=== PATIENT | female | born 1960 | race Caucasian/White ===

== ENCOUNTER 2016-11-16 18:45 | Emergency (ER) | payer BC ==
[2016-11-16 18:55] VITALS: BP 135/61
[2016-11-16] MEDS ORDERED: Acetaminophen TAB* 325 MG PO ONE (19:20)
--- NOTE | 2016-11-16 19:27 | UC ---
Respiratory Complaint HPI - HPI Summary HPI Summary: 56 yo female with the onset of f/c, sever myalgias and cough runny nose which started about 12 hours ago no n/v/d no abd pain or UTI symptoms - History of Current Complaint Chief Complaint: UCRespiratory Stated Complaint: HIGH FEVER,EAR PAIN,ACHY Time Seen by Provider: 11/16/16 19:14 Hx Obtained From: Patient Onset/Duration: Sudden Onset, Lasting Hours Timing: Constant Severity Initially: Moderate Severity Currently: Moderate Pain Intensity: 7 Pain Scale Used: 0-10 Numeric Character: Cough: Productive Aggravating Factors: Nothing Alleviating Factors: Nothing Associated Signs And Symptoms: Positive: Fever, Chills, Nasal Congestion, Sinus Discomfort - Allergies/Home Medications Allergies/Adverse Reactions: Allergies Allergy/AdvReac Type Severity Reaction Status Date / Time Alcohol Allergy Severe "Cardiac Verified 11/16/16 18:56 Distress Syndrome" Aspirin [ASA] Allergy Severe anaphapaxis Verified 11/16/16 18:56 i Latex Allergy Severe anaphlaxsis Verified 11/16/16 18:56 Celecoxib [From Celebrex] AdvReac Severe aggitation Verified 11/16/16 18:56 Meperidine [From Demerol HCl] AdvReac Vomiting Verified 11/16/16 18:56 Nortriptyline AdvReac See Comment Verified 11/16/16 18:56 cyclines AdvReac Severe vomiting, Uncoded 08/25/15 13:44 diarrhea myacins AdvReac vomiting Uncoded 08/25/15 13:44 and diarrhea PMH/Surg Hx/FS Hx/Imm Hx Endocrine History Of: Reports: Diabetes, Thyroid Disease - hypo Cardiovascular History Of: Reports: Hypertension Denies: Cardiac Disorders Respiratory History Of: Reports: Asthma, Bronchitis, Pneumonia GI/ History Of: Denies: Ulcer - Surgical History Surgical History: Yes Surgery Procedure, Year, and Place: thumb surgery,nasal surgery, tubal ligation, . nerve blocks in spine 2007 - Social History Alcohol Use: None Alcohol Amount: never Substance Use Type: None Smoking Status (MU): Heavy Every Day Tobacco Smoker Type: Cigarettes Amount Used/How Often: 1PPD Length of Time of Smoking/Using Tobacco: 41 Years Have You Smoked in the Last Year: Yes Cessation Counseling: Patient Advised to Stop - Immunization History Most Recent Influenza Vaccination: no Review of Systems Constitutional: Fever, Chills, Fatigue Skin: Negative Eyes: Negative ENT: Ear Ache, Nasal Discharge Respiratory: Cough Cardiovascular: Negative Gastrointestinal: Negative Genitourinary: Negative Motor: Negative Neurovascular: Negative Musculoskeletal: Myalgia Neurological: Headache Psychological: Negative All Other Systems Reviewed And Are Negative: Yes Physical Exam Triage Information Reviewed: Yes Appearance: Well-Appearing, No Pain Distress, Well-Nourished Vital Signs: Initial Vital Signs Temp 99.7 F 11/16/16 18:49 Pulse 95 11/16/16 18:49 Resp 18 11/16/16 18:49 BP 135/61 11/16/16 18:49 Pulse Ox 97 11/16/16 18:49 Vital Signs Reviewed: Yes Eyes: Positive: Conjunctiva Clear ENT: Positive: Normal ENT inspection, Hearing grossly normal, Nasal congestion, Nasal drainage, TMs normal. Negative: Tonsillar swelling, Tonsillar exudate, Trismus, Muffled/hoarse voice Dental: Positive: Other: - edentulous Neck: Positive: Supple, Nontender, No Lymphadenopathy Respiratory: Positive: Lungs clear, Normal breath sounds, No respiratory distress. Negative: No accessory muscle use, Respiratory distress, Decreased breath sounds Cardiovascular: Positive: RRR, No Murmur. Negative: Brisk Capillary Refill, Bradycardia Abdomen Description: Positive: Nontender, No Organomegaly Musculoskeletal: Positive: Strength Intact, ROM Intact Neurological: Positive: Alert, Muscle Tone Normal Psychological Exam: Normal Skin Exam: Normal UC Diagnostic Evaluation - Laboratory O2 Sat by Pulse Oximetry: 97 - normal/not hypoxic Respiratory Course/Dx - Course Course Of Treatment: RAPID FLU (+) - Differential Dx/Diagnosis Provider Diagnoses: influenza. smoker Discharge - Discharge Plan Condition: Stable Disposition: HOME Prescriptions: Benzonatate CAP* [Tessalon CAP*] 100 - 200 mg PO TID PRN #28 cap PRN Reason: Cough Oseltamivir CAP* [Tamiflu CAP*] 75 mg PO BID #10 cap Patient Education Materials: Influenza (ED) Referrals: Prateek Nieves MD [Primary Care Provider] - 3 Days Additional Instructions: rest fluids tylenol recheck for new or worsening symptoms
== END 2016-11-16 19:53 | disposition home or self-care (01) ==
LOC: UCCORT 18:45
DX: M79.1 Myalgia (principal); J11.1 Influenza due to unidentified influenza virus with other respiratory manifestations; F17.210 Nicotine dependence, cigarettes, uncomplicated; Z88.6 Allergy status to analgesic agent; Z88.5 Allergy status to narcotic agent; Z88.1 Allergy status to other antibiotic agents; Z88.8 Allergy status to other drugs, medicaments and biological substances
CPT/HCPCS: 87502; 99212; A9270-GY; G0463

== ENCOUNTER 2018-01-03 16:51 | Emergency (ER) | payer BC ==
[2018-01-03 17:23] VITALS: BP 131/77
--- NOTE | 2018-01-03 17:45 | UC ---
Respiratory Complaint HPI - HPI Summary HPI Summary: Pt c/o cough, sob, chest congestion, nasal congestion, generalized malaise, chills X 1 week. - History of Current Complaint Chief Complaint: UCRespiratory Stated Complaint: COUGH,WHEEZING Time Seen by Provider: 01/03/18 17:27 Hx Obtained From: Patient ?: No Onset/Duration: Sudden Onset, Lasting Weeks, Still Present, Worse Since - onset Timing: Constant Severity Initially: Mild Severity Currently: Moderate Pain Intensity: 0 Character: Cough: Nonproductive Aggravating Factors: Exertion, Deep Breaths, Recumbent Position Alleviating Factors: Nothing Associated Signs And Symptoms: Positive: Chills, URI, Nasal Congestion - Risk Factors Pulmonary Embolism Risk Factors: Negative, Smoking Cardiac Risk Factors: Hypertension, Smoking, Diabetes, Elevated Lipids Pseudomonas Risk Factors: Negative Tuberculosis Risk Factors: Diabetes, Smoking, Incarceration - 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 - Allergies/Home Medications Allergies/Adverse Reactions: Allergies Allergy/AdvReac Type Severity Reaction Status Date / Time alcohol Allergy See Comment Verified 01/03/18 17:35 aspirin Allergy Anaphylatic Verified 01/03/18 17:40 Shock celecoxib [From Celebrex] Allergy Agitation Verified 01/03/18 17:40 latex Allergy Anaphylatic Verified 01/03/18 17:40 Shock meperidine Allergy Vomiting Verified 01/03/18 17:40 nortriptyline Allergy See Comment Verified 01/03/18 17:40 MS Nortriptyline AdvReac See Comment Verified 11/16/16 18:56 [Nortriptyline] cyclines AdvReac Severe vomiting, Uncoded 08/25/15 13:44 diarrhea myacins AdvReac vomiting Uncoded 08/25/15 13:44 and diarrhea Home Medications: Home Medications Biotin 10,000 mcg PO DAILY 01/03/18 [History Confirmed 01/03/18] Lisinopril TAB* [Prinivil TAB 5 MG*] 5 mg PO DAILY 01/03/18 [History Confirmed 01/03/18] Lysine HCl [l-Lysine] 500 mg PO DAILY 01/03/18 [History Confirmed 01/03/18] Potassium 99 mg PO DAILY 01/03/18 [History Confirmed 01/03/18] metFORMIN* [Glucophage 500 MG TAB *] 1,000 mg PO DAILY 01/03/18 [History Confirmed 01/03/18] PMH/Surg Hx/FS Hx/Imm Hx Previously Healthy: No Endocrine History: Diabetes Cardiovascular History: Cardiac Disease, Hypertension - Surgical History Surgical History: Yes Surgery Procedure, Year, and Place: thumb surgery,nasal surgery, tubal ligation, . nerve blocks in spine 2007 - Family History Known Family History: Positive: Cardiac Disease - Social History Occupation: Employed Full-time Lives: With Family Alcohol Use: None Alcohol Amount: never Substance Use Type: None Smoking Status (MU): Heavy Every Day Tobacco Smoker Type: Cigarettes Amount Used/How Often: 1PPD Length of Time of Smoking/Using Tobacco: 41 Years Have You Smoked in the Last Year: Yes - Immunization History Most Recent Influenza Vaccination: no Review of Systems Constitutional: Chills, Fatigue Skin: Negative Eyes: Negative ENT: Sinus Congestion Respiratory: Shortness Of Breath, Cough Cardiovascular: Negative Gastrointestinal: Negative Genitourinary: Negative Motor: Negative Neurovascular: Negative Musculoskeletal: Myalgia Neurological: Negative Psychological: Negative Is Patient Immunocompromised?: No All Other Systems Reviewed And Are Negative: Yes Physical Exam Triage Information Reviewed: Yes Appearance: Ill-Appearing Vital Signs: Initial Vital Signs Temp 98.1 F 01/03/18 17:18 Pulse 101 01/03/18 17:18 Resp 18 01/03/18 17:18 BP 131/77 01/03/18 17:18 Pulse Ox 99 01/03/18 17:18 Vital Signs Reviewed: Yes Eye Exam: Normal ENT Exam: Other ENT: Positive: Nasal congestion Dental Exam: Normal Neck exam: Normal Respiratory Exam: Other Respiratory: Positive: Decreased breath sounds - bases Cardiovascular Exam: Other Cardiovascular: Positive: Tachycardia Musculoskeletal Exam: Normal Neurological Exam: Normal Psychological Exam: Normal Skin Exam: Normal UC Diagnostic Evaluation - Laboratory O2 Sat by Pulse Oximetry: 99 Respiratory Course/Dx - Differential Dx/Diagnosis Differential Diagnosis/HQI/PQRI: Bronchitis, Influenza, Other - pneumonia Provider Diagnoses: pneumonia Discharge - Sign-Out/Discharge Documenting (check all that apply): Discharge/Admit/Transfer - Discharge Plan Condition: Stable Disposition: HOME Prescriptions: Albuterol 2.5MG/3ML (0.083%)* [Ventolin 2.5 MG/3 ML NEB.EMETERIO*] 2.5 mg INH Q6H PRN #1 box PRN Reason: Sob/Wheezing Benzonatate CAP* [Tessalon 100 MG CAP*] 100 mg PO Q8H PRN #30 cap PRN Reason: Cough predniSONE TAB* [Deltasone TAB*] 30 mg PO DAILY #12 tab Sulfamethox/Trimethoprim DS* [Bactrim DS 800/160 TAB*] 1 tab PO Q12H #20 tab Patient Education Materials: Pneumonia (ED) Referrals: Prateek Nieves MD [Primary Care Provider] - If Needed - Billing Disposition and Condition Condition: STABLE Disposition: HOME
== END 2018-01-03 17:54 | disposition home or self-care (01) ==
LOC: UCCORT 16:51
DX: J18.9 Pneumonia, unspecified organism (principal); F17.210 Nicotine dependence, cigarettes, uncomplicated; Z88.6 Allergy status to analgesic agent; Z88.3 Allergy status to other anti-infective agents; Z88.8 Allergy status to other drugs, medicaments and biological substances
CPT/HCPCS: 99212; G0463

== ENCOUNTER 2018-12-13 16:50 | Emergency (ER) | payer BC ==
[2018-12-13 17:41] VITALS: BP 144/85
[2018-12-13] MEDS ORDERED: Albuterol 2.5 MG/3 ML NEB.SOL* (0.083%) INH ONE (18:48)
--- NOTE | 2018-12-13 18:48 | UC ---
UC General HPI - HPI Summary HPI Summary: PER TRIAGE, Woke up with sore throat with fever, nasal congestion, chest congestion with cough. + HEADACHE, BODYACHES AND WHEEZING. + SINUS PAIN AND SINUS SWELLING. - History of Current Complaint Chief Complaint: UCGeneralIllness Stated Complaint: FEVER,COUGH,B/L EAR COMPLAINT Time Seen by Provider: 12/13/18 18:37 Hx Obtained From: Patient Onset/Duration: Sudden Onset Timing: Constant Pain Intensity: 8 Associated Signs & Symptoms: Negative: Chest Pain, Diarrhea, Dysuria, Vomiting - Allergy/Home Medications Allergies/Adverse Reactions: Allergies Allergy/AdvReac Type Severity Reaction Status Date / Time alcohol Allergy See Comment Verified 12/13/18 17:41 aspirin Allergy Anaphylatic Verified 12/13/18 17:41 Shock celecoxib [From Celebrex] Allergy Agitation Verified 12/13/18 17:41 latex Allergy Anaphylatic Verified 12/13/18 17:41 Shock meperidine Allergy Vomiting Verified 12/13/18 17:41 nortriptyline Allergy See Comment Verified 12/13/18 17:41 MS Nortriptyline AdvReac See Comment Verified 12/13/18 17:41 [Nortriptyline] cyclines AdvReac Severe vomiting, Uncoded 12/13/18 17:41 diarrhea myacins AdvReac vomiting Uncoded 12/13/18 17:41 and diarrhea PMH/Surg Hx/FS Hx/Imm Hx Endocrine History: Diabetes, Thyroid Disease, Dyslipidemia Cardiovascular History: Hypertension - Surgical History Surgical History: Yes Surgery Procedure, Year, and Place: thumb surgery,nasal surgery, tubal ligation, . nerve blocks in spine 2007 - Family History Known Family History: Positive: Cardiac Disease - Social History Lives: With Family Alcohol Use: None Alcohol Amount: never Substance Use Type: None Smoking Status (MU): Heavy Every Day Tobacco Smoker Type: Cigarettes Amount Used/How Often: 1PPD Length of Time of Smoking/Using Tobacco: 41 Years Have You Smoked in the Last Year: Yes - Immunization History Most Recent Influenza Vaccination: no Review of Systems All Other Systems Reviewed And Are Negative: Yes Constitutional: Positive: Fever ENT: Positive: Sore Throat, Nasal Discharge, Sinus Congestion, Sinus Pain/ Tenderness Respiratory: Positive: Cough Musculoskeletal: Positive: Myalgia Neurological: Positive: Headache Physical Exam Triage Information Reviewed: Yes Appearance: Ill-Appearing - BUT NON TOXIC Vital Signs: Initial Vital Signs Temp 98.3 F 12/13/18 17:35 Pulse 101 12/13/18 17:35 Resp 18 12/13/18 17:35 BP 144/85 12/13/18 17:35 Pulse Ox 99 12/13/18 17:35 Vital Signs Reviewed: Yes Eyes: Positive: Conjunctiva Clear ENT: Positive: Pharyngeal erythema, Nasal congestion, TMs normal, Sinus tenderness. Negative: Nasal drainage Neck: Positive: Supple, Nontender, No Lymphadenopathy Respiratory: Positive: No respiratory distress, Decreased breath sounds, Wheezing - SCATTERED Cardiovascular: Positive: RRR, No Murmur Abdomen Description: Positive: Nontender, No Organomegaly, Soft Bowel Sounds: Positive: Present Musculoskeletal: Positive: ROM Intact Neurological: Positive: Alert Psychological: Positive: Normal Response To Family, Age Appropriate Behavior Skin Exam: Normal Re-Evaluation - Re-Evaluation First Eval Re-Evaluation Time: 19:27 Change: Improved - better aeration and less wheezing. Course/Dx - Course Course Of Treatment: DIAGNOSTICS=RAPID FLU IS NEGATIVE. NEB TX HERE WAS HELPFUL, PT HAS ACCESS TO A NEB AT HOME THUS WILL WRIT FOR ALBUTEROL. PT STATES AMOXICILLIN WORKS WELL FOR HER AND THAT OTHER ANTIBIOTICS CAUSE HER SEVERE DIARRHEA THUS WILL USE THE AMOXICILLIN INSTEAD OF AUGMENTIN FOR HER SINUSES. - Differential Dx - Multi-Symptom Differential Diagnoses: Other - RAPID FLU=NEGATIVE. NO CONCERN FOR PNEUMONIA. - Diagnoses Provider Diagnosis: Sinusitis, Bronchospasm Discharge - Sign-Out/Discharge Documenting (check all that apply): Patient Departure All imaging exams completed and their final reports reviewed: No Studies - Discharge Plan Condition: Stable Disposition: HOME Prescriptions: Albuterol 2.5MG/3ML (0.083%)* [Ventolin 2.5 MG/3 ML NEB.EMETERIO*] 2.5 mg INH Q6H #1 box Amoxicillin PO (*) [Amoxicillin 875 MG (*)] 875 mg PO BID 10 Days #20 tab Patient Education Materials: Sinusitis (ED), Bronchospasm (ED) Forms: *Work Release Referrals: Prateek Nieves MD [Primary Care Provider] - 7 Days - Billing Disposition and Condition Condition: STABLE Disposition: Home
[2018-12-13 19:12] LABS: Influenza A Molecular NEGATIVE (Negative); Influenza B Molecular NEGATIVE (Negative)
== END 2018-12-13 19:44 | disposition home or self-care (01) ==
LOC: UCCORT 16:50
DX: J32.9 Chronic sinusitis, unspecified (principal); J98.01 Acute bronchospasm; E11.9 Type 2 diabetes mellitus without complications; I10 Essential (primary) hypertension; F17.210 Nicotine dependence, cigarettes, uncomplicated
CPT/HCPCS: 99212; G0463

== ENCOUNTER 2019-06-02 15:11 | Emergency (ER) | payer BC ==
--- OUTSIDE RECORDS SUMMARY | 2019-06-02 15:19 | XMS REPORT | Continuity of Care Document ---
:1960 External Reference #:[id number] Author Name Valentina Gamez, RUPINDER Address [facility] [place] [address] Care Team Providers Name Role Phone Patrick Quiles DR Care Team Information [facility] [phone] Supa Solares MD - Endocrinology, Care Team Information [facility] Metabolism Primo Lawler MD - Endocrinology, Care Team Information [facility] Ganga Rolle DR - Ophthalmology Care Team Information [facility] Problems Active Problems Provider Date Elevated blood-pressure reading without Prateek Nieves MD Onset: 2012 diagnosis of hypertension Irritable bowel syndrome Prateek Nieves MD Onset: 11/13/2010 Type 2 diabetes mellitus Prateek Nieves MD Onset: 05/13/2010 Vitamin D deficiency Prateek Nieves MD Onset: 03/29/2009 Shoulder joint pain Prateek Nieves MD Onset: 10/29/2006 Atopic dermatitis Prateek Nieves MD Onset: 08/23/2006 Hypothyroidism Prateek Nieves MD Onset: 06/29/2006 Pure hypercholesterolemia Prateek Nieves MD Onset: 06/29/2006 Benign neoplasm of colon Prateek Nieves MD Onset: 06/29/2006 Gastroesophageal reflux disease Prateek Nieves MD Onset: 06/29/2006 Anemia Prateek Nieves MD Onset: 06/29/2006 Tobacco user Prateek Nieves MD Onset: 06/29/2006 Postconcussion syndrome Prateek Nieves MD Onset: 10/19/2014 Rosacea Prateek Nieves MD Onset: 02/18/2016 Essential hypertension Prateek Nieves MD Onset: 02/18/2016 Increased frequency of urination Prateek Nieves MD Onset: 04/21/2017 Social History Type Date Description Comments Sex Unknown ETOH Use Denies alcohol use Tobacco Use Start: Unknown Patient is a current smoker, smokes every day 1 PPD Allergies, Adverse Reactions, Alerts Active Allergies Reaction Severity Comments Date Bentyl Screaming 07/12/2012 Clindamycin Vomiting/Diarrhea 11/13/2010 Cephalexin Vomiting/Diarrhea 11/13/2010 Aspirin 06/29/2006 Latex Diaphoretic/Rash 10/19/2014 Alcohol Respiratory Distress/Cardiac 10/19/2014 Arrest Per PT Nortriptyline Vomiting 10/19/2014 Lyrica Rash 10/19/2014 Cymbalta CP; Tremor; Marsh 10/19/2014 Relafen Itching 10/19/2014 Adhesives Rash 10/19/2014 Darvocet Vomiting 10/19/2014 Valproic Acid [employer] side effects 11/21/2014 Doxycycline Severe severe GI 06/28/2017 Medications Active Medications SIG Qnty Indications Ordering Provider Date Levothyroxine Sodium 1 by mouth 90tabs E03.9 Digiovanna, 03/27/2019 every day MD Prateek 100mcg Tablets Oxybutynin Chloride ER 1 by mouth 90tabs R35.0 Digiovanna, 09/22/2017 every day MD Prateek 15mg Tablets ER 24HR Test Strips For Use to test 100units E11.9 Digiovanna, 06/09/2017 Glucometer blood sugar 3 MD Prateek times a day I10 Nebulizer use w/ 1units J20.9 Digiovanna, 06/09/2017 Kit/Tubing/Mouthpiece respiratory MD Prateek Kit medications Epinephrine use as directed 1kit Yooniovankya, 04/21/2017 0.3mg/0.3ML Solution for serious MD Prateek Auto-Inject allergic reaction Metformin HCL ER take 2 tablets by 180tabs E11.9 Digiovanna, 04/21/2017 500mg Tablets ER mouth once a day Roseanne BRIM CURLER 24HR with a meal. maximum daily dose is 2 tablets Lisinopril take 1 tablet by 90tabs I10 Digiovanna, 02/18/2016 5mg Tablets mouth every day Roseanne, BRIM CURLER Hyoscyamine Sulfate ER take 1 tablet by 90tabs K58.0 Lizbeth, 2014 0.375mg mouth every day Roseanne, BRIM CURLER Tablets ER 12HR as needed for spasms K58.9 Diltiazem HCL take 1 tablet by 90tabs R03.0 Prateek Nieves, 2011 30mg mouth every day MD Tablets I10 Pantoprazole Sodium take 1 tablet by 90tabs K21.9 Roseanne Nieves, 40mg mouth every day BRIM CURLER Tablets DR before meals Vitamin B-12 1 PO qd Prateek Nieves J 11/13/2010 500mcg Tablets MD [place] Vitamin D3 2 by mouth every OTC E55.9 Prateek Nieves, 10/11/2008 1000Unit day MD Capsules Potassium Chloride Unknown 20Meq Packet Black Cohash Unknown Super B-Complex 1 by mouth every Unknown Capsules day History Medications Levothyroxine Sodium 1 by mouth 90tabs E03.9 Lizbeth, 03/27/2019 - every day MD Prateek 03/27/2019 112mcg Tablets Benzonatate 1 capsule up to 30caps J20.9 Dawson Burns, 12/16/2018 - 200mg 3 times a day 04/24/2019 Capsules as needed for cough Prednisone 1 tablet twice 10tabs J20.9 Dawson Burns DO 12/16/2018 - 20mg Tablets daily for 5 12/21/2018 days Virtussin A/C 10 mL every 6 120ml J20.9 Dawson Burns DO 12/16/2018 - hours as needed 03/27/2019 100-10mg/5ML Solution for cough Amoxicillin/Clavulana 1 by mouth 14tabs J20.9 Dawson Burns DO 2018 - te Potassium twice a day x 7 12/23/2018 875-125mg days Tablets Immunizations CPT Code Status Date Vaccine Reaction Lot # [id number] Refused 10/07/2018 Flu Vaccine NOS NOT GETTING [id number] Refused 09/25/2015 Influenza Virus DOESN'T WANT Vaccine,Quadrivalent,Split,Preserv Free, 0.5mL,[place] [id number] Refused 07/13/2013 Afluria Or Fluvirin Flu Vac Intramuscular Vital Signs Date Vital Result Comment 04/25/2019 8:05am Body Temperature 97.0 F Weight 147.00 lb Heart Rate 74 /min BP Systolic 138 mmHg BP Diastolic 76 mmHg Respiratory Rate 16 /min Height 62.5 inches 5'2.50" O2 % BldC Oximetry 98 % ra BMI (Body Mass Index) 26.5 kg/m2 03/27/2019 1:27pm Weight 148.00 lb Heart Rate 90 /min BP Systolic 140 mmHg BP Diastolic 80 mmHg Respiratory Rate 18 /min Height 62.5 inches 5'2.50" BMI (Body Mass Index) 26.6 kg/m2 Results Test Date Facility Test Result H/L Range Note Laboratory test finding 04/25/2019 [facility] 44 U/L 12-199 CRP (C-Reactive) 0.11 mg/dL 0.00-0.75 Esr 12 mm/hr 0-20 Laboratory test finding 04/25/2019 [facility] Aldolase-RL <pending> Hemoglobin A1c 03/22/2019 [facility] Hemoglobin A1c 6.5 % High 4.1-5.9 1 Estimated Average Glucose Calc 140 mg/dL 71-140 Laboratory test finding 03/22/2019 [facility] TSH 0.07 uIU/mL Low 0.35-4.94 Lipid Treatment 03/22/2019 [facility] Cholesterol 193 mg/dL 50-199 Triglycerides 209 mg/dL High 30-200 HDL 46 mg/dL 35-85 2 Chol/ HDL Ratio 4.2 ratio 3.7-5.6 VLDL 42 mg/dL High 2-29 LDL (Calc) 105 mg/dL High 20-99 3 Alt 8 U/L 3-42 Ast 11 U/L 8-42 Laboratory test finding 03/22/2019 [facility] Vitamin D 25 Hydroxy 41 ng/mL 30-100 4 Basic (BMP) 03/22/2019 [facility] Sodium 141 mmol/L 135-146 5 Potassium 4.3 mmol/L 3.5-5.2 Chloride# 106 mmol/L 97-110 6 Carbon Dioxide 26 mmol/L 24-34 Glucose 141 mg/dL High 70-105 BUN 12 mg/dL 6-26 Creatinine 0.9 mg/dL 0.5-1.4 Calcium 9.2 mg/dL 8.5-10.5 7 Female Egfr 73 >60 8 Male Egfr 94 >60 9 Anion Gap 9 mmol/L 5-15 10 CBC with Auto Diff-fcmg 03/22/2019 [facility] WBC 6.2 K/uL 4.1-11.0 RBC 4.02 M/uL 4.00-5.40 Hemoglobin 13.5 gm/dL 12.0-16.0 Hematocrit 38.5 % 36.0-47.0 MCV 95.8 fL 80.0-97.0 MCH 33.6 pg High 27.0-32.0 MCHC 35.1 g/dL 32.0-36.0 RDW 12.5 % 11.5-14.5 PLT Count 283 K/ul 140-400 MPV 6.8 FL Low 7.1-10.7 Neutrophil 61.1 % 35.0-75.0 Lymphocyte 26.9 % 16.0-52.0 Monocyte 6.4 % 2.0-10.0 Eosinophil 4.7 % 0.0-5.0 Basophil 0.9 % 0.0-4.0 Abs Neutrophils 3.8 K/uL 2.1-8.0 Abs Lymphocytes 1.7 K/uL 0.8-5.5 Abs Monocytes 0.4 K/uL 0.1-1.0 Abs Eosinophils 0.3 K/uL 0.0-0.5 Abs Basophils 0.1 K/uL 0.0-0.3 Laboratory test finding 03/22/2019 [facility] Magnesium 1.6 mg/dL 1.5-2.7 Vitamin B12 344 pg/mL 180-914 1 03/31 preOV 2 Per NCEP ATP III Guidelines: Results lower than 40 mg/dL are suggestive of increased risk for coronary artery disease. Results > or = to 60 mg/dL are considered a negative risk factor. 3 Per NCEP ATP III Guidelines: Normal Population <130 Patients with medical conditions: CHD/DM Optimal: <100 Borderline high: 130-159 High: 160-189 Very high: >189 4 Clinical Guidelines for recommended serum 25(OH)Vitamin D Deficient at less than 20 ng/mL Insufficient at 20 to <30 ng/mL Sufficient at 30-100 ng/mL Toxicity at greater than 100 ng/mL 5 Updated reference range on new analyzer 6 Updated reference range on new analyzer 7 Updated reference range 01-11-2019 8 Concerning GFR Guidelines for Americans: Normal function or mild renal disease, if clinically at risk: >/= 60 mL/min Moderately decreased: 30-59 Severely decreased: 15-29 Renal failure: <15 There is reduced accuracy above 60ml/min/1.73 m squared, but the numeric value may be clinically useful in the near 60 range 9 Concerning GFR Guidelines: Normal function or mild renal disease, if clinically at risk: >/= 60 mL/min Moderately decreased: 30-59 Severely decreased: 15-29 Renal failure: <15 There is reduced accuracy above 60ml/min/1.73 m squared, but the numeric value may be clinically useful in the near 60 range Glomerular Filtration Rate (GFR) is estimated based on the CKD-EPI equation, which assumes a steady state for creatinine as recommended by the National Kidney Disease Education Program in conjunction with the National Institutes of Health and the National Kidney Foundation. Clinical conditions in which it may be necessary to measure GFR by using clearance methods include extremes of age and body size, severe malnutrition or obesity, diseases of skeletal muscle, paraplegia or quadriplegia, vegetarian diet, rapidly changing kidney function, and calculation of the dose of potentially toxic drugs that are excreted by the kidneys. 10 Updated Reference Range Procedures Date Code Description Status 12/16/2018 66486 Measure Blood Oxygen Level Single Determination Completed 11/04/2017 716346321 Bone Mineral Density Test Completed 09/13/2004 97776830 Colonoscopy Completed Medical Devices Description No Information Available Encounters Type Date Location Provider Dx Diagnosis Office Visit 03/27/2019 JOSE G Nieves, R07.9 Chest pain, 1:30p MD Prateek unspecified E11.9 Type 2 diabetes mellitus without complications E78.00 Pure hypercholesterolemia, unspecified E03.9 Hypothyroidism, unspecified I10 Essential (primary) hypertension E55.9 Vitamin D deficiency, unspecified K21.9 Gastro-esophageal reflux disease without esophagitis K58.9 Irritable bowel syndrome without diarrhea Z72.0 Tobacco use R13.10 Dysphagia, unspecified Z68.26 Body mass index (BMI) 26.0-26.9, adult Office Visit 03/22/2019 6:11p Prateek Garsia, E11.9 Type 2 diabetes MD mellitus without complications E03.9 Hypothyroidism, unspecified E78.00 Pure hypercholesterolemia, unspecified E55.9 Vitamin D deficiency, unspecified I10 Essential (primary) hypertension Z79.899 Other intermediate (current) drug therapy Office Visit 12/16/2018 9:30a [facility] Connie Kern PA J20.9 Acute bronchitis, unspecified Z68.27 Body mass index (BMI) 27.0-27.9, adult Assessments Date Code Description Provider 04/25/2019 R07.9 Chest pain, unspecified Stravijay, Valentina, BRIM CURLER 04/25/2019 E78.00 Pure hypercholesterolemia, unspecified Strauf, Valentina, BRIM CURLER 04/25/2019 R35.0 Frequency of micturition Valentina Gamez, BRIM CURLER 04/25/2019 R07.9 Chest pain, unspecified Schedule, Laboratory 04/25/2019 K21.9 Gastro-esophageal reflux disease without StraNolvia linarese, BRIM CURLER esophagitis 04/25/2019 R07.9 Chest pain, unspecified [facility] 03/27/2019 R07.9 Chest pain, unspecified Prateek Nieves MD 03/27/2019 E11.9 Type 2 diabetes mellitus without Prateek Nieves MD complications 03/27/2019 E78.00 Pure hypercholesterolemia, unspecified Prateek Nieves MD 03/27/2019 E03.9 Hypothyroidism, unspecified Prateek Nieves MD 03/27/2019 I10 Essential (primary) hypertension Prateek Nieves MD 03/27/2019 E55.9 Vitamin D deficiency, unspecified Prateek Nieves MD 03/27/2019 K21.9 Gastro-esophageal reflux disease without Prateek Nieves MD esophagitis 03/27/2019 K58.9 Irritable bowel syndrome without diarrhea Prateek Nieves MD 03/27/2019 Z72.0 Tobacco use Prateek Nieves MD 03/27/2019 R13.10 Dysphagia, unspecified Prateek Nieves MD 03/27/2019 Z68.26 Body mass index (BMI) 26.0-26.9, adult Prateek Nieves MD 03/22/2019 E11.9 Type 2 diabetes mellitus without Prateek Nieves MD complications 03/22/2019 E11.9 Type 2 diabetes mellitus without Schedule, Laboratory complications 03/22/2019 E03.9 Hypothyroidism, unspecified Prateek Nieves MD 03/22/2019 E03.9 Hypothyroidism, unspecified Schedule, Laboratory 03/22/2019 E78.00 Pure hypercholesterolemia, unspecified Prateek Nieves MD 03/22/2019 E78.00 Pure hypercholesterolemia, unspecified Schedule, Laboratory 03/22/2019 E55.9 Vitamin D deficiency, unspecified Prateek Nieves MD 03/22/2019 E55.9 Vitamin D deficiency, unspecified Schedule, Laboratory 03/22/2019 I10 Essential (primary) hypertension Prateek Nieves MD 03/22/2019 I10 Essential (primary) hypertension Schedule, Laboratory 03/22/2019 Z79.899 Other intermediate (current) drug therapy Prateek Nieves MD 03/22/2019 Z79.899 Other intermediate (current) drug therapy Schedule, Laboratory 03/22/2019 E11.9 Type 2 diabetes mellitus without Prateek Nieves MD complications 03/22/2019 E03.9 Hypothyroidism, unspecified Prateek Nieves MD 03/22/2019 E78.00 Pure hypercholesterolemia, unspecified Prateek Nieves MD 03/22/2019 E55.9 Vitamin D deficiency, unspecified Prateek Nieves MD 03/22/2019 I10 Essential (primary) hypertension Prateek Nieves MD 03/22/2019 Z79.899 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 Prateek Nieves MD 03/22/2019 E11.9 Type 2 diabetes mellitus without [facility] complications 03/22/2019 E03.9 Hypothyroidism, unspecified [facility] 03/22/2019 E78.00 Pure hypercholesterolemia, unspecified [facility] 03/22/2019 E55.9 Vitamin D deficiency, unspecified [facility] 03/22/2019 Z79.899 Other intermediate (current) drug therapy [facility] 12/16/2018 J20.9 Acute bronchitis, unspecified Connie Kern PA 12/16/2018 Z68.27 Body mass index (BMI) 27.0-27.9, adult Erlin, Connie, PA Plan of Treatment Future Appointment(s):05/04/2019 8:15 am - Prateek Nieves MD at [facility]2019 1:00 pm - Schedule, Laboratory at [facility]09/27/2019 2:30 pm - Prateek Nieves MD at [facility]04/25/2019 - Valentina Gamez, NPR07.9 Chest pain, unspecifiedComments:-Stress echo 04/14/19: Symptomology unrelated to heart.- Labs today as advised by PCP with close follow-up on 05/04-Hiatal hernia?E78.00 Pure hypercholesterolemia, unspecifiedComments:-Discontinue simvastatin today per PCP as it may be contributing to current acute somatic complaints. -Follow- up scheduled 05/04/19R35.0 Frequency of micturitionComments:-Currently taking actos. Unable to dip in office today. Sample large enough for one lab only. Will do Urine Micro today.K21.9 Gastro-esophageal reflux disease without esophagitisComments:-Extensive GI hx. Clinical significance of condition and hx discussed. Continue current course of txwith mylanta as needed. Consider referral to GI? Functional Status Description No Information Available Mental Status Description No Information Available Referrals Description No Information Available
[2019-06-02 15:42] VITALS: BP 142/76
--- NOTE | 2019-06-02 16:53 | UC ---
General HPI - HPI Summary HPI Summary: pt is c/o an itchy rash on her L upper back x 29 days. she now notes some icty bumps to back of neck/base of scalp and across upper back as well. she has self tx with topical steroid cream, topical antibiotic, po Benadryl and Calamine lotion all without relied. - History of Current Complaint Chief Complaint: UCSkin Stated Complaint: BILATERAL SHOULDERS/NECK/HEAD Time Seen by Provider: 06/02/19 16:41 Pain Intensity: 10 - Allergy/Home Medications Allergies/Adverse Reactions: Allergies Allergy/AdvReac Type Severity Reaction Status Date / Time alcohol Allergy See Comment Verified 06/02/19 15:24 aspirin Allergy Anaphylatic Verified 06/02/19 15:24 Shock celecoxib [From Celebrex] Allergy Agitation Verified 06/02/19 15:24 latex Allergy Anaphylatic Verified 06/02/19 15:24 Shock meperidine Allergy Vomiting Verified 06/02/19 15:24 nortriptyline Allergy See Comment Verified 06/02/19 15:24 cyclines AdvReac Severe vomiting, Uncoded 06/02/19 15:24 diarrhea myacins AdvReac vomiting Uncoded 06/02/19 15:24 and diarrhea Home Medications: Home Medications Levothyroxine TAB* [Synthroid TAB*] 100 mcg PO DAILY 06/02/19 [History Confirmed 06/02/19] Theophylline TAB* [Cisco Dur*] 300 mg PO DAILY PRN 06/02/19 [History Confirmed ] diPHENhydraMINE PO* [Benadryl PO 25 MG TAB*] 50 mg PO Q6H PRN 06/02/19 [History Confirmed 06/02/19] traMADol TAB* [Ultram*] 50 mg PO DAILY 06/02/19 [History Confirmed 06/02/19] PMH/Surg Hx/FS Hx/Imm Hx - Additional Past Medical History Additional PMH: Chronic back pain Endocrine History: Diabetes, Thyroid Disease GI/ History: Gastroesophageal Reflux - Surgical History Surgical History: Yes Surgery Procedure, Year, and Place: thumb surgery,nasal surgery, tubal ligation, . nerve blocks in spine 2007 - Family History Known Family History: Positive: Cardiac Disease - Social History Occupation: Employed Full-time Lives: With Family Alcohol Use: None Alcohol Amount: never Substance Use Type: None Smoking Status (MU): Heavy Every Day Tobacco Smoker Type: Cigarettes Amount Used/How Often: 1PPD Length of Time of Smoking/Using Tobacco: 44 Years Have You Smoked in the Last Year: Yes - Immunization History Most Recent Influenza Vaccination: no Review of Systems All Other Systems Reviewed And Are Negative: No Constitutional: Negative: Fever, Chills Skin: Positive: Rash ENT: Negative: Sore Throat, Ear Ache, Sinus Congestion Respiratory: Negative: Shortness Of Breath, Cough Physical Exam Triage Information Reviewed: Yes Appearance: Well-Appearing Vital Signs: Initial Vital Signs Temp 98.5 F 06/02/19 15:36 Pulse 92 06/02/19 15:36 Resp 18 06/02/19 15:36 BP 142/76 06/02/19 15:36 Pulse Ox 96 06/02/19 15:36 Vital Signs Reviewed: Yes Eyes: Positive: Conjunctiva Clear ENT: Positive: Normal ENT inspection Neck: Positive: Supple Respiratory: Positive: No respiratory distress Musculoskeletal: Positive: ROM Intact Neurological: Positive: Alert Psychological: Positive: Age Appropriate Behavior Skin Exam: Normal Skin: Positive: Rashes - pink-dry area on L upper back with some scale on surface but not red, warm or tender. also fine slightly raised rash across upper shoulder and nap of neck which is excoriated. no blistering, not petechial and no burrows. Course/Dx - Differential Dx - Multi-Symptom Differential Diagnoses: Other - no concern for infestation, cellulitis or fungal infection. patch on L upper back alone may have suggested healing shingle but the rest does not fit that dx. pt to stop all prior tx's which are not helping. will tx with medrol gwendolyn and dermatology f/u - Diagnoses Provider Diagnosis: Rash Discharge ED - Sign-Out/Discharge Documenting (check all that apply): Patient Departure All imaging exams completed and their final reports reviewed: No Studies - Discharge Plan Condition: Stable Disposition: HOME Prescriptions: methylPREDNISolone [Medrol Dosepak 4 MG*] 0 mg PO .SEE GWENDOLYN INSTRUCTION #1 tab Patient Education Materials: Acute Rash (ED) Referrals: Sita Vital [Medical Doctor] - As Soon As Possible Additional Instructions: ask for [place] office. stop all prior treatments since they are not helping. - Billing Disposition and Condition Condition: STABLE Disposition: Home
== END 2019-06-02 17:04 | disposition home or self-care (01) ==
LOC: UCCORT 15:11
DX: R21 Rash and other nonspecific skin eruption (principal); E11.9 Type 2 diabetes mellitus without complications; E07.9 Disorder of thyroid, unspecified; F17.210 Nicotine dependence, cigarettes, uncomplicated
CPT/HCPCS: 99212; G0463

== ENCOUNTER 2024-01-31 08:49 | Inpatient (IN) ==
[2024-01-31 09:18] LABS: ABS Basophils 0.1 10^3/uL (0.0-0.1); ABS Eosinophils 0.2 10^3/uL (0.0-0.5); ABS Lymphocytes 1.5 10^3/uL (1.0-4.8); ABS Monocytes 0.5 10^3/uL (0.0-0.9); ABS Neutrophils 13.8 10^3/uL (1.5-7.6); ABS Nucleated RBC 0.01 10^3/ul; Eosinophil % 1.4 %; Hematocrit 38.1 % (35-45); Hemoglobin 13.1 g/dL (11.5-14.3); Mean Corpuscular Hemoglobin 32.9 pg (27-33); Mean Corpuscular Hgb Conc 34.3 g/dL (31-36); Mean Corpuscular Volume 95.9 fL (80-97); Nucleated Red Blood Cells % 0.1 %/100WBC (0.0-0.8); Platelet Count 371 10^3/uL (150-450); Red Blood Count 3.97 10^6/uL (3.63-4.92); Red Cell Distribution Width 13.6 % (12-17); White Blood Count 16.1 10^3/uL (3.8-11.8)
[2024-01-31 09:23] LABS: INR 0.95 (0.83-1.13)
[2024-01-31] MEDS: Heparin DRIP 25,000 UNITS BAG 25,000 UNITS/250 ML BAG IV SCH (09:34)
[2024-01-31] MEDS: Heparin 5000 UNITS/ML 1 mL VIAL IV SCH (09:35)
[2024-01-31 09:45] LABS: High Sens Troponin Baseline 73 pg/mL (<15)
[2024-01-31 10:04] LABS: ALT 37 U/L (7-52); Albumin 4.3 g/dL (3.2-5.2); Albumin/Globulin Ratio 1.6 (1-3); Alkaline Phosphatase 121 U/L (35-149); Anion Gap 12 mmol/L (2-16); Blood Urea Nitrogen 19 mg/dL (6-24); CO2 Carbon Dioxide 24 mmol/L (22-32); Calcium 9.2 mg/dL (8.6-10.3); Chloride 102 mmol/L (101-111); Creatinine, Serum 1.13 mg/dL (0.51-0.95); Globulin 2.7 g/dL (2-4); Glucose 344 mg/dL (70-100); Sodium 138 mmol/L (135-145); Total Bilirubin 0.3 mg/dL (0.2-1.0)
[2024-01-31] MEDS: Iodixanol (CONTRAST) 320 MG/ML 100 ML SDV IV ONE (10:52)
[2024-01-31 11:12] LABS: Potassium Redraw 4.1 mmol/L (3.5-5.0)
[2024-01-31 13:53] LABS: High Sensitivity Troponin 3 Hr 1645 pg/mL (<15)
[2024-01-31] MEDS: Nicotine PATCH 14 MG/24 HR PATCH TRANSDERM SCH (16:04)
[2024-01-31] MEDS: Prasugrel 10 mg TAB (NF) PO SCH (16:04)
[2024-01-31] MEDS ORDERED: Albuterol HFA INHALER 8 gm MDI INH PRN (16:50)
[2024-01-31 17:09] LABS: LDL Cholesterol Direct 86 mg/dL
[2024-01-31] MEDS ORDERED: ALBUTEROL MDI INH PRN (17:21)
[2024-01-31] MEDS: Levalbuterol 0.63MG/3ML NEB UNIT OF USE INH ONE (17:34)
[2024-01-31 18:20] VITALS: BP 103/62
[2024-02-01] MEDS ORDERED: Aspirin EC 81 mg TAB.EC (enteric coated) PO SCH (09:00)
== END 2024-01-31 18:58 | disposition short-term general hospital (02) | DRG 282 ==
LOC: ED 08:49 → EDHOLD 11:44 → MEDTELE 13:58 → ICU 14:58
PROVIDERS: ADMIT Hospitalist; ATTEND Student in an Organized Health Care Education/Training Program